=== PATIENT | female | born 1995 | race Two or more races ===

== ENCOUNTER → 2022-02-22 09:04 | Outpatient (BNVA) | payer OTHER, SELFPAY | PROVIDERS: PCP Nurse Practitioner Pediatrics; Visit Provider Physician Assistant Medical | DX: Z13.89 Encounter for screening for other disorder (principal) | CPT/HCPCS: 99202 ==

== ENCOUNTER 2022-03-07 01:14 | Outpatient (REF) | payer OTHER, SELFPAY ==
[2022-03-07 01:38] LABS: COVID-19 Test Negative (Negative); IDNOW Serial# 55D5AD1C
== END 2022-03-07 01:15 | disposition home or self-care (01) ==
LOC: HO.LAB 01:14
PROVIDERS: Visit Provider Internal Medicine
DX: Z20.822 Contact with and (suspected) exposure to COVID-19 (principal)
CPT/HCPCS: 87635

== ENCOUNTER 2022-03-27 23:50 | Outpatient (REF) | payer OTHER, SELFPAY ==
[2022-03-28 00:21] LABS: COVID-19 Test Negative (Negative); IDNOW Serial# BCCEAD1C
== END 2022-03-27 23:51 | disposition home or self-care (01) ==
LOC: HO.LAB 23:50
PROVIDERS: Visit Provider Internal Medicine
DX: Z20.822 Contact with and (suspected) exposure to COVID-19 (principal)
CPT/HCPCS: 87635

== ENCOUNTER 2022-07-29 06:19 | Emergency (ER) | payer OTHER, SELFPAY ==
--- NOTE | 2022-07-29 06:21 | ED.GENADULT ---
HPI - General Adult General Chief complaint: General Medical Stated complaint: Time Seen by Provider: 07/29/22 06:21 Source: patient Mode of arrival: ambulatory Limitations: no limitations History of Present Illness HPI narrative: 26-year-old female, presents with lower abdominal pain/contractions. Symptoms started approximately 1 hour ago. She is feeling contractions every 5 minutes. She denies any gush of water, vaginal bleeding or discharge. She denies any fever, chills, nausea vomiting, diarrhea. She did have the urge to defecate but was unable to do so. Patient feels the contractions in lower abdomen. They do not radiate. There is no clear relieving or exacerbating features. She has had care. She usually has her care at [facility]. She is on a vitamin. She reports her has been without any significant issues. Related Data Allergies Allergy/AdvReac Type Severity Reaction Status Date / Time No Known Allergies Allergy Verified 07/29/22 06:28 [facility] Social History Social History Advance Directives: No Advance Directives Information Provided: Yes Physical Exam ED Vital Signs: Vital Signs - 24 hr 07/29/22 06:23 Temperature 98 F Pulse Rate 79 Respiratory Rate 18 Blood Pressure 134/81 Pulse Oximetry 99 Oxygen Delivery Method Room Air BMI result Body Mass Index 44.9 GEN: Well developed, no acute distress, alert, oriented HEENT: Normocephalic, atraumatic, normal external ears, nose appears normal, no oropharyngeal edema or exudates Eyes: Normal to appearance Neck: Supple, no lymphadenopathy Respiratory: Talks in complete sentences, no respiratory distress, clear to auscultation bilaterally Cardiovascular: Regular rate and rhythm, no murmurs rubs or gallops Abdomen: Soft, lower abdominal tenderness, gravid abdomen, no guarding, no rebound Back: No CVA tenderness Extremities: No clubbing cyanosis or edema Neurologic: No focal neurologic deficits, cranial nerves 2-12 intact, strength is 5/5 bilaterally Skin: No rash Course Course Course Narrative: 26-year-old female presents with a sensation of contractions approximately every 5 minutes. She reports her water has not broken. She denies any vaginal bleeding or discharge. Examination revealed and a gravid abdomen. There is some lower abdominal tenderness but there is no rebound or guarding. heart rate was approximately 158 beats per minute. Patient contacted her own OBGYN group who instructed her to be checked into the emergency department here at [place] and then be transferred to [facility]. Patient decided to go ahead and register in the emergency department. She is considering her options such is being transferred by ambulance, driving herself or having somebody else drive her to [facility]. Reevaluation(s) Reevaluation #1: We have contacted [facility] for possible transfer. At this point, laboratory tests have been ordered. Patient is aware. Patient discuss could still consider her options would be transfer by ambulance or to go by her personal automobile. Patient will be transferred care to the oncoming doctor pending consultation with [facility]. Time: 07:01 Medical Decision Making Medical Decision Making MDM Narrative: 26-year-old female presents with a sensation of contractions approximately every 5 minutes. She reports her water has not broken. She denies any vaginal bleeding or discharge. Examination revealed and a gravid abdomen. There is some lower abdominal tenderness but there is no rebound or guarding. heart rate was approximately 158 beats per minute. Patient contacted her own OBGYN group who instructed her to be checked into the emergency department here at [place] and then be transferred to [facility]. Patient decided to go ahead and register in the emergency department. She is considering her options such is being transferred by ambulance, driving herself or having somebody else drive her to [facility]. Differential Diagnosis Differential Diagnoses: The differential diagnosis associated with the presentation includes (Contractions, [place] contractions, gastroenteritis, abdominal discomfort) Admission/Observation Consideration of admission/observation: Escalation of care including admission/observation considered Lab Data Labs: Lab Results 07/29/22 07/29/22 Range/Units 06:36 06:36 Urine Color Yellow Urine Appearance Clear Urine pH 7.0 (5.0-9.0) Ur Specific [place] <= 1.005 (1.005-1.025) Urine Protein Negative (Neg-Trace) mg/dL Urine Glucose (UA) Negative (Negative) mg/dL Urine Ketones Negative (Negative) mg/dL Urine Blood Negative (Negative) Urine Nitrite Negative (Negative) Ur Leukocyte Esterase Trace H (Negative) Urine RBC 0-2 (0-2) /HPF Urine WBC 0-5 (0-5) /HPF Ur Squamous Epith Cells 6-10 (0-2) /HPF Urine Bacteria Trace (None Seen) Hyaline Casts 0-2 (0-2) /LPF COVID-19 (PATSY) Negative (Negative) COVID-19 Clin Com See Note Independent Interpretation Interpretation: heart rate 158 Tests considered The following testing was considered but not selected: Ultrasound Discharge Plan Discharge Clinical Impression: Uterine contractions Patient Disposition: Still a Patient Instructions: [place] Contractions (ED), Early Labor Signs (ED) Additional Instructions: You presented to the emergency department with a sensation of contractions. Your respiratory practitioner is located at [facility]. We are unable to perform monitoring. Your provided with the options to be transferred via ambulance to [facility], discharged herself from the emergency department to either follow-up at [facility] or go to [facility] review receive your normal care. Please make sure to seek immediate attention depend
[2022-07-29 06:23] VITALS: BP 134/81; PULSE 79; RESP 18; TEMP 36.6; O2SAT 99; BMI 44.9
--- NOTE | 2022-07-29 06:24 | MHC.EDTECH ---
Call out to [facility] @[phone]
[2022-07-29 06:43] LABS: Appearance Urine Clear; Color Urine Yellow; Glucose Urine UA Negative (Negative); Leukocyte Esterase Urine Trace (Negative); Nitrite Urine Negative (Negative); Specific Gravity - Urine <= 1.005 (1.005-1.025); UMIC TRIGGER UACC YES; Urine Blood Negative (Negative); Urine Ketones Negative (Negative); Urine Protein Negative (Neg-Trace)
[2022-07-29 06:48] LABS: Bacteria Urine Trace (None Seen); Hyaline Casts Urine 0-2 /LPF (0-2); RBC Urine 0-2 /HPF (0-2); WBC Urine 0-5 /HPF (0-5)
--- NOTE | 2022-07-29 06:50 | PC.NURSE ---
resumed care of patient this morning, she is currently resting in bed, plan to d/c to [facility], she is currently in bed, a/ox4. Reporting abdominal cramping intermit. denies neuro symptoms or numbness/tingling.
[2022-07-29 06:56] LABS: COVID-19 Test Negative (Negative); IDNOW Serial# 6674DD1D
--- NOTE | 2022-07-29 07:05 | MHC.EDTECH ---
@[phone] PABLITO FROM [facility] PT TX LINE CALLS AND ASKS TO SPEAK WITH DR LAYNE ON THIS PT DR HENRY TAKES THE CALL FOR DR LAYNE RIGHT AWAY
[2022-07-29 07:28] LABS: MANUAL DIFF FLAG NO
[2022-07-29 07:29] LABS: Basophils Percent Auto 0.1 % (0-2); Eosinophils Absolute Auto 0.2 X10*3/uL (0.0-0.4); Eosinophils Percent Auto 2.1 % (0-4); Hematocrit 36.8 % (37.0-47.0); Hemoglobin 11.8 g/dl (12.0-16.0); Imm Gran Abs Auto 0.03 X10*3/uL (0.00-0.03); Imm Gran Pct Auto 0.3 % (0.0-0.4); Mean Corpuscular HGB Conc 32.1 g/dl (31.0-35.0); Mean Corpuscular Hemoglobin 27.6 pg (27.0-33.0); Monocytes Absolute Auto 0.9 X10*3/uL (0.1-1.2); Monocytes Percent Auto 8.1 % (2-11); Neutrophils Absolute Auto 7.4 x10*3/uL (2.0-8.3); Neutrophils Percent Auto 70.4 % (45-73); Platelet Count 360 X10*3/uL (160-400); Red Blood Count 4.28 X10*6/uL (4.20-5.50); White Blood Count 10.6 X10*3/uL (4.8-10.8)
--- NOTE | 2022-07-29 07:42 | MHC.EDTECH ---
@[phone] CALL PLACED TO [facility] D/T BRIJESH BUSH FOR ALS TX TO [facility] 2 FOR ? OF LABOR TRANSFER DECLINED D/T UNABLE TO ACCOMMODATE @THIS TIME AND GIVE A TX#[id number] @[phone] CALL PLACED TO [facility] FOR ALS TX TO [facility] 2 FOR ? OF LABOR AFTER DECLIN OF TRANSPORT FROM [facility]
[2022-07-29 07:45] LABS: Alanine Aminotransferase 21 U/L (0-31); Albumin Level 3.4 g/dL (3.5-5.0); Alkaline Phosphatase 118 U/L (39-117); Anion Gap 13 (12-20); Aspartate Amino Transferase 15 U/L (5-31); Bilirubin Total 0.3 mg/dL (0.0-1.0); Blood Urea Nitrogen 7 mg/dL (9-16); Calcium 9.5 mg/dL (8.4-10.2); Carbon Dioxide 24 mmol/L (22-29); Chloride 105 mmol/L (96-108); Creatinine Clr Calc Pharmacy 139.8; Estimated Glomerular Filt Rate > 60; Glucose Random 109 mg/dL (60-115); Sodium 138 mmol/L (135-145); Total Protein 6.5 g/dL (6.5-8.0)
--- NOTE | 2022-07-29 08:03 | MHC.EDTECH ---
@[phone] CALL RECEIVED FROM AGUSTÍN SILVESTRE STATING THAT [facility] HAS TAKEN THIS CALL AND WILL BE HERE SHORTLY
--- NOTE | 2022-07-29 08:26 | PC.NURSE ---
Pt being transfered to at [facility], she remains a/ox, denies any fluid leaking, cramping has remained the same. Report given to [facility] for transfer.
== END 2022-07-29 08:25 | disposition short-term general hospital (02) ==
PROVIDERS: Emergency Medicine; Emergency Provider Emergency Medicine Emergency Medical Services; PCP Nurse Practitioner Family
DX: O47.02 False labor before 37 completed weeks of gestation, second trimester (principal); Z3A.32 32 weeks gestation of pregnancy
CPT/HCPCS: 36415; 80053; 81001; 85025; 87635; 99285